=== PATIENT | male | born 1985 | race Caucasian/White ===

== ENCOUNTER 2018-05-27 15:56 | Outpatient (REF) | payer OTHER, SELFPAY ==
[2018-05-27 18:49] LABS: Abs Immature Grans 0.01 k/cumm (0.0-0.09); Absolute Basophil Count 0.03 k/cumm (0.0-0.2); Absolute Eosinophil Count 0.28 k/cumm (0.0-0.7); Absolute Neutrophil Count 2.02 k/cumm (1.2-6.7); Basophils % 0.6; HCT 47.4 % (40.0-50.0); HGB 16.1 g/dL (13.5-17.5); Immature Grans % 0.2; Lymphocytes % 40.9; Mean Corpuscular Hemoglobin 28.8 pg (27.0-33.0); Mean Corpuscular Volume 84.8 fL (80-95); Mean Platelet Volume 9.5 fL (8.0-11.0); Monocytes % 8.6; Neutrophils % 43.7; Platelet Count 254 x1000/uL (130-400); RBC 5.59 m/cumm (4.50-6.00); RBC Distribution Width 12.5 % (11.8-14.1); White Blood Cell Count 4.64 k/cumm (4.4-10.8)
[2018-05-27 18:59] LABS: Anion Gap 8.8 mmol/L (3-11); BUN 20 mg/dL (7-18); CO2 28.2 mmol/L (21.0-32.0); CREATININE 0.89 mg/dL (0.70-1.30); Calcium 9.4 mg/dL (8.5-10.1); Chloride 103 mmol/L (98-107); Glucose 84 mg/dL (70-100); Potassium 4.4 mmol/L (3.5-5.1); Sodium 140 mmol/L (136-145)
[2018-05-30 10:08] LABS: PSA, Diagnostic 0.4 ng/ml (0-2.5)
== END 2018-05-27 16:16 ==
LOC: NCHCN 15:56
PROVIDERS: PCP Physician Assistant Medical; Visit Provider Physician Assistant Medical
DX: R35.0 Frequency of micturition (principal)
CPT/HCPCS: 80048; 84153; 85025

== ENCOUNTER 2018-06-01 13:23 | Outpatient (CLI) | payer SELFPAY ==
--- NOTE | 2018-06-01 14:02 | DI.US_ITS ---
SYMPTOMS/DIAGNOSIS: URINARY FREQUENCY, R35.0 RENAL ULTRASOUND: The left kidney measures 10.9 x 6.1 x 5.7 cm, the right kidney 11 x 4.9 x 5.5 cm. There is no evidence of right or left nephrolithiasis or hydronephrosis. The prevoid bladder contains 343 cc, postvoid bladder contains 38 cc. Both ureteral jets were visualized. The prostatic volume was 12.5 cm2. SUMMARY: Normal renal ultrasound.
== END 2018-06-01 13:43 ==
PROVIDERS: PCP Physician Assistant Medical; Visit Provider Physician Assistant Medical
DX: R35.0 Frequency of micturition (principal)
CPT/HCPCS: 76770

== ENCOUNTER 2022-03-28 00:51 | Emergency (ER) | payer OTHER, SELFPAY ==
[2022-03-28] VITALS (41 sets, daily range): BP systolic 102–133; BP diastolic 60–76; PULSE 54–77; RESP 11–25; TEMP 36.5; O2SAT 96–100
--- NOTE | 2022-03-28 00:45 | RT.EKG_ITS ---
APPROVED REPORT Exam: Resting ECG Reason for Exam: chest pain Patient Location: E HR:63 bpm ECG Measurements Heart Rate 63 AXIS NJ 170 P 64 QRSd 108 QRS 47 QT 437 T 19 QTc 448 Conclusion Sinus rhythm...normal P axis, V-rate 60- 99. Sinus. Normal axis. No STEMI. I have reviewed and interpreted ECG and agree with software generated interpretation.
--- NOTE | 2022-03-28 01:04 | ED.GENADUL_ITS ---
Discharge Plan Disposition Patient Disposition: Home Condition: Good Discharge Details Clinical Impression: Episode of syncope, Chest pain Primary Care Provider: Jerzy Turner ED Provider: Marta Gaffney Home Meds and New Rx's Prescriptions: No Action No Known Home Meds Discharge Instructions Instructions: Chest Pain (ED), Syncope (ED) Additional Instructions: Your blood tests, EKGs and imaging today are reassuring and show no evidence of acute concerning or significant findings. Drink plenty of fluids and get plenty of rest. An order has been placed for an outpatient heart monitor. Call the hospital at [phone] to schedule an appointment for placement of a laboratory monitor. Follow-up with your primary care doctor in 1 week for reevaluation and for consideration for referral for an echocardiogram and/or cardiology for further evaluation. Return to the emergency department with any worsening or new concerning symptoms. Discharge Orders Other Ambulatory Orders: Holter Monitor (Routine) Timeframe: 1 Week Facility: [facility] - Location: Respiratory Therapy Ordered By: Marta Gaffney Discharge Data Discharge Physician: Marta Gaffney Medical Decision Making 0100 -- 36-year-old male with no significant past medical history presents with feeling cold-like symptoms for the past month that have since been improving with an episode of chest pain and dizziness prior to his syncopal episode this evening. EKG on arrival notes a rate of 63, normal axis, no STEMI and nondiagnostic. Vitals within normal limits. Patient states he feels pretty good at this time. He appears mildly anxious but nontoxic. He has no focal deficits. Suspect vasovagal syncope or micturition syncope in the setting of potential dehydration status post long URI-like symptoms for the past month. Consider arrhythmia secondary to component of chest pain. Review of records note that patient had a Holter monitor for palpitations and chest pain in 2013 which was unremarkable. Patient endorses that he has had an occasional feeling of chest aching for years. Will obtain screening labs including D-dimer, fluvid, chest x-ray and give fluids and reassess. 0500 -- Labs and imaging reviewed. Potassium 3.2, will replete. Troponin negative x 2. D-dimer negative. Lipase within normal limits. Fluvid negative. CXR negative for acute findings. Pt reassessed and feels much better and feels good to go home. He denies any return of his symptoms. An order for an outpatient laboratory monitor has been placed. He is advised to call his PCP on Wednesday morning for follow-up within the next week and for referral for outpatient echocardiogram and referral to cardiology if indicated. Usual and customary return precautions given prior to discharge. Medical Records Medical records reviewed: Yes I reviewed the patient's medical records. Imaging Data Radiologic Study: Radiologist's impression: Holter Monitor - 07/07/13 Rhythm throughout study is sinus. ? Mean sinus rate 75 beats per minute. ? No unusual pauses or bradycardias are observed. ? Two single PACs entire study. ? No ventricular ectopy. ? No atrial fibrillation.? No Supraventricular tachycardia.? No ventricular tachycardia. ? Patient notes ache many times during various sinus rates without significant ST-segment changes. ? ? Lab Data Lab results reviewed: Yes I reviewed the patient's lab results. Lab results narrative: Laboratory Tests Range/Units 03/28/22 03/28/22 03/28/22 01:04 01:04 01:10 WBC (4.4-10.8) 10^3/uL 6.53 RBC (4.36-5.78) 10^6/uL 4.97 Hgb (13.5-17.5) g/dL 14.1 Hct (40.0-50.0) % 43.0 MCV (80-95) fL 87 MCH (27.0-33.0) pg 28.4 MCHC (32.0-36.0) % 32.8 RDW (11.8-14.1) % 11.9 Plt Count (130-400) 10^3/uL 232 MPV (8.0-11.0) fL 9.2 Immature Gran % 0.2 Neutrophils % 35.2 Lymphocytes % 52.4 Monocytes % 8.1 Eosinophils % 3.5 Basophils % 0.6 Nucleated RBC % (0.0-0.3) % 0.0 Absolute Neutrophils (1.2-6.7) 10^3/uL 2.30 Absolute Lymphocytes (1.2-3.4) 10^3/uL 3.42 H Absolute Monocytes (0.1-0.8) 10^3/uL 0.53 Absolute Eosinophils (0.0-0.7) 10^3/uL 0.23 Absolute Basophils (0.0-0.2) 10^3/uL 0.04 D-Dimer (<500) ng/mlFEU Sodium (136-145) mmol/L 140 Potassium (3.5-5.1) mmol/L 3.2 L Chloride (98-107) mmol/L 104 Carbon Dioxide (21.0-32.0) mmol/L 27.7 Anion Gap (3-11) mmol/L 8.3 BUN (7-18) mg/dL 22 H Creatinine (0.70-1.30) mg/dL 0.9 Est GFR (CKD-EPI 2020) (mL/min/1.73m2) 114.22 Glucose (74-106) mg/dL 130 H Calcium (8.5-10.1) mg/dL 8.5 Magnesium (1.8-2.4) mg/dL 2.0 Total Bilirubin (0.2-1.0) mg/dL 0.7 AST (15-37) U/L 22 ALT (16-63) U/L 24 Alkaline Phosphatase (46-116) U/L 79 Troponin I (<or=60) ng/L < 50 Total Protein (6.4-8.2) g/dL 6.2 L Albumin (3.4-5.0) g/dL 3.6 Lipase (16-77) U/L 19 COVID-19 Source Nasopharynx SARS-CoV-2 (PCR) (Negative) Negative Influenza Type A (PCR) (Negative) Negative Influenza Type B (PCR) (Negative) Negative RSV (PCR) (Negative) Negative Range/Units 03/28/22 03/28/22 03:53 04:00 WBC (4.4-10.8) 10^3/uL RBC (4.36-5.78) 10^6/uL Hgb (13.5-17.5) g/dL Hct (40.0-50.0) % MCV (80-95) fL MCH (27.0-33.0) pg MCHC (32.0-36.0) % RDW (11.8-14.1) % Plt Count (130-400) 10^3/uL MPV (8.0-11.0) fL Immature Gran % Neutrophils % Lymphocytes % Monocytes % Eosinophils % Basophils % Nucleated RBC % (0.0-0.3) % Absolute Neutrophils (1.2-6.7) 10^3/uL Absolute Lymphocytes (1.2-3.4) 10^3/uL Absolute Monocytes (0.1-0.8) 10^3/uL Absolute Eosinophils (0.0-0.7) 10^3/uL Absolute Basophils (0.0-0.2) 10^3/uL D-Dimer (<500) ng/mlFEU 143 Sodium (136-145) mmol/L Potassium (3.5-5.1) mmol/L Chloride (98-107) mmol/L Carbon Dioxide (21.0-32.0) mmol/L Anion Gap (3-11) mmol/L BUN (7-18) mg/dL Creatinine (0.70-1.30) mg/dL Est GFR (CKD-EPI 2020) (mL/min/1.73m2) Glucose (74-106) mg/dL Calcium (8.5-10.1) mg/dL Magnesium (1.8-2.4) mg/dL Total Bilirubin (0.2-1.0) mg/dL AST (15-37) U/L ALT (16-63) U/L Alkaline Phosphatase (46-116) U/L Troponin I (<or=60) ng/L < 50 Total Protein (6.4-8.2) g/dL Albumin (3.4-5.0) g/dL Lipase (16-77) U/L COVID-19 Source SARS-CoV-2 (PCR) (Negative) Influenza Type A (PCR) (Negative) Influenza Type B (PCR) (Negative) RSV (PCR) (Negative) Labs: Laboratory Tests Range/Units 03/28/22 03/28/22 03/28/22 01:04 01:04 01:10 WBC (4.4-10.8) 10^3/uL 6.53 RBC (4.36-5.78) 10^6/uL 4.97 Hgb (13.5-17.5) g/dL 14.1 Hct (40.0-50.0) % 43.0 MCV (80-95) fL 87 MCH (27.0-33.0) pg 28.4 MCHC (32.0-36.0) % 32.8 RDW (11.8-14.1) % 11.9 Plt Count (130-400) 10^3/uL 232 MPV (8.0-11.0) fL 9.2 Immature Gran % 0.2 Neutrophils % 35.2 Lymphocytes % 52.4 Monocytes % 8.1 Eosinophils % 3.5 Basophils % 0.6 Nucleated RBC % (0.0-0.3) % 0.0 Absolute Neutrophils (1.2-6.7) 10^3/uL 2.30 Absolute Lymphocytes (1.2-3.4) 10^3/uL 3.42 H Absolute Monocytes (0.1-0.8) 10^3/uL 0.53 Absolute Eosinophils (0.0-0.7) 10^3/uL 0.23 Absolute Basophils (0.0-0.2) 10^3/uL 0.04 Sodium (136-145) mmol/L 140 Potassium (3.5-5.1) mmol/L 3.2 L Chloride (98-107) mmol/L 104 Carbon Dioxide (21.0-32.0) mmol/L 27.7 Anion Gap (3-11) mmol/L 8.3 BUN (7-18) mg/dL 22 H Creatinine (0.70-1.30) mg/dL 0.9 Est GFR (CKD-EPI 2020) (mL/min/1.73m2) 114.22 Glucose (74-106) mg/dL 130 H Calcium (8.5-10.1) mg/dL 8.5 Magnesium (1.8-2.4) mg/dL 2.0 Total Bilirubin (0.2-1.0) mg/dL 0.7 AST (15-37) U/L 22 ALT (16-63) U/L 24 Alkaline Phosphatase (46-116) U/L 79 Troponin I (<or=60) ng/L < 50 Total Protein (6.4-8.2) g/dL 6.2 L Albumin (3.4-5.0) g/dL 3.6 Lipase (16-77) U/L 19 COVID-19 Source Nasopharynx SARS-CoV-2 (PCR) (Negative) Negative Influenza Type A (PCR) (Negative) Negative Influenza Type B (PCR) (Negative) Negative RSV (PCR) (Negative) Negative ECG Data Attestation: I personally reviewed and interpreted this ECG (s) as follows: Interpretation: #1 -- rate of 63, sinus, no stemi. #2 -- rate of 61, sinus, no stemi. HPI General Mode of arrival: ambulatory . Date/Time Provider Initiated Documentation: 03/28/22 00:53 . Limitations to Documentation: no limitations . Information obtained by: patient . HPI Narrative: Patient is a 36-year-old male with no significant past medical history who presents with a complaint of chest pain, dizziness and syncopal episode prior to arrival. Patient states he was standing urinating this evening when he developed substernal chest aching followed by dizziness. Patient states he was planning been to come to the emergency department for evaluation and then when he was walking in the hallway at home he felt dizziness again and passed out. Patient denies any injury at that time. Patient states the chest aching and dizziness lasted for approximately 30 minutes and then resolved. Patient states he has had similar chest aching and has had dizziness in the past before and had a Holter monitor which was unremarkable. Patient states he has had cold-like symptoms for the past month that started with dry cough, postnasal drip and green nasal discharge. He states overall the symptoms have been improving and now resolved except for still having some nasal discharge. He states he has not tested himself for COVID. He states he has received 1 COVID-vaccine but not a second. Patient denies any recent fever, sore throat, shortness of breath, nausea, vomiting, diarrhea, urinary symptoms, headache or neck pain. He denies any recent medications including antibiotics, caffeine, energy drinks, alcohol or drug use. Related Data Home Medications Medication Instructions Recorded Confirmed Unknown [No Known Home Meds] 07/07/13 03/28/22 Allergies Allergy/AdvReac Type Severity Reaction Status Date / Time No Known Allergies Allergy Unverified 03/28/22 00:57 General Stated Complaint: Chest Pain ARABELLA: 2 Review of Systems All systems reviewed & are unremarkable except as noted in HPI and below Constitutional Constitutional: Reports as per HPI, Denies chills and Denies fever(s) Eyes Eyes: Denies blurry vision ENT Ears, Nose, Mouth, and Throat: Denies dizziness, Denies sore throat and Denies throat swelling Cardiovascular Cardiovascular: Reports chest pain and Denies dyspnea Respiratory Respiratory: Denies cough and Denies dyspnea Gastrointestinal Gastrointestinal: Denies abdominal pain, Denies diarrhea and Denies vomiting Genitourinary Genitourinary: Denies hematuria and Denies dysuria Musculoskeletal Musculoskeletal: Denies back pain and Denies numbness Integumentary/Breasts Skin/Breast: Denies lesions and Denies rash Neurologic Neurologic: Denies dizziness, Denies localized weakness and Denies numbness Allergic/Immunologic Allergic/Immunologic: Denies throat swelling PFSH All Active Problems (Updated 03/28/22 @ 04:46 by Marta Gaffney DO) Episode of syncope (Chronic) Chest pain (Acute) Medical History (Updated 03/28/22 @ 04:46 by Marta Gaffney DO) No significant past medical history Surgical History (Updated 03/28/22 @ 01:41 by Marta Gaffney DO) H/O thumb surgery Social History Smoking/Tobacco Use Status: Never Smoking risk assessment performed?: Yes Alcohol Intake: never Drug use: Never Substance use type: does not use Exam Const General: cooperative and no acute distress Orientation: alert, awake and oriented x3 HENMT Head: normal to inspection Face and sinus: normal facial exam Eyes General: appearance normal, both eyes and all related structures Pupils: PERRL EOM: EOM intact bilaterally Neck Neck: normal visual inspection and No submandibular swelling Lymphatic: no lymphadenopathy noted Chest Chest: normal inspection of the chest and no tenderness Resp Effort & Inspection: normal respiratory effort and able to speak in complete sentences Auscultation: clear to auscultation bilaterally Cardio Rate: regular rate Rhythm: regular rhythm GI Inspection: normal to inspection Palpation: soft, not firm, not rigid and nontender Auscultation: hypoactive bowel sounds Back/Spine/Pelvis Thoracic/Lumbar Spine: thoracic and lumbar spine normal to inspection Pelvis: no pain with anterior-posterior compression Skin General skin exam: no rashes or lesions noted Neuro General: patient alert, patient awake, patient oriented x3, moves all extremities and no meningeal signs Cranial Nerves: CN's II-XI intact bilaterally Cognition: normal cognition Speech: speech normal Motor: muscle tone normal throughout and strength 5/5 throughout Sensory Exam: no sensory deficits noted Extrem General: normal to inspection, full ROM, capillary refill normal, no calf tenderness bilaterally and no edema Psych Appearance: grossly normal Mental Status: mental status grossly normal Speech and Movement: speech and movement normal Affect: normal affect Course Vital Signs Vital signs: Vital Signs Temperature 97.7 F 03/28/22 00:52 Pulse 65 03/28/22 00:52 Respiratory Rate 15 03/28/22 00:52 Blood Pressure 119/67 03/28/22 00:52 Pulse Oximetry 97 03/28/22 00:52 Temperature 97.7 F 03/28/22 00:52 Temperature Source Temporal Artery Scan 03/28/22 00:52 Pulse 65 03/28/22 00:52 Respiratory Rate 15 03/28/22 00:52 Respiratory Effort Normal 03/28/22 00:52 Blood Pressure 119/67 03/28/22 00:52 Blood Pressure Position Supine 03/28/22 00:52 Pulse Oximetry 97 03/28/22 00:52 Oxygen Delivery Method Room Air 03/28/22 00:52 Oxygen Flow Rate 0 03/28/22 00:52 Pain Level 0 03/28/22 00:52
[2022-03-28] MEDS: Normal Saline 1,000 ML 1000 ML IV (01:10)
[2022-03-28 01:13] LABS: Abs Immature Grans 0.01 10^3/uL (0.0-0.06); Absolute Basophil Count 0.04 10^3/uL (0.0-0.2); Absolute Eosinophil Count 0.23 10^3/uL (0.0-0.7); Absolute Lymphocyte Count 3.42 10^3/uL (1.2-3.4); Absolute Monocyte Count 0.53 10^3/uL (0.1-0.8); Basophils % 0.6; Eosinophils % 3.5; HGB 14.1 g/dL (13.5-17.5); Immature Grans % 0.2; Lymphocytes % 52.4; MCH 28.4 pg (27.0-33.0); MCHC 32.8 % (32.0-36.0); MCV 87 fL (80-95); MPV 9.2 fL (8.0-11.0); Monocytes % 8.1; Neutrophils % 35.2; Platelet Count 232 10^3/uL (130-400); RBC 4.97 10^6/uL (4.36-5.78); RDW 11.9 % (11.8-14.1); RDW-SD 37.8 fL; WBC 6.53 10^3/uL (4.4-10.8)
--- NOTE | 2022-03-28 01:30 | DI.RAD_ITS ---
Exam(s) XR CHEST 2V PA LATERAL EXAM: XR CHEST 2V PA LATERAL CLINICAL HISTORY: chest pain, syncope, r/o acute disease TECHNIQUE: 2D digital imaging was performed. COMPARISON: No exams were available for comparison FINDINGS: HEART: Normal size. Aorta: Not dilated. PULMONARY VASCULATURE: Normal. LUNGS: Clear. PLEURAL SPACE: No pleural effusion or pneumothorax. BONE:Unremarkable for age. IMPRESSION: No acute abnormality. DATA REPOSITORY: RADIATION DOSE DELIVERED:
[2022-03-28 01:31] LABS: ALT 24 U/L (16-63); AST 22 U/L (15-37); Albumin 3.6 g/dL (3.4-5.0); Alkaline Phosphatase 79 U/L (46-116); Anion Gap 8.3 mmol/L (3-11); BUN 22 mg/dL (7-18); Bilirubin, Total 0.7 mg/dL (0.2-1.0); CO2 27.7 mmol/L (21.0-32.0); CREATININE 0.9 mg/dL (0.70-1.30); Calcium 8.5 mg/dL (8.5-10.1); Chloride 104 mmol/L (98-107); Estimated GFR 114.22 (mL/min/1.73m2); Glucose 130 mg/dL (74-106); Lipase 19 U/L (16-77); Potassium 3.2 mmol/L (3.5-5.1); Sodium 140 mmol/L (136-145); Total Protein 6.2 g/dL (6.4-8.2); Troponin I < 50 ng/L (<or=60)
[2022-03-28 01:49] LABS: COVID-19 PCR Negative (Negative); Influenza A PCR Negative (Negative); Influenza B PCR Negative (Negative); RSV PCR Negative (Negative)
[2022-03-28 01:50] LABS: Source Nasopharynx
[2022-03-28] MEDS: Potassium Chloride 20 MEQ TABCR 40 MEQ PO (02:25)
--- NOTE | 2022-03-28 02:59 | DI.VRAD_ITS ---
PROCEDURE INFORMATION: Exam: XR Chest Exam date and time: 03/28/2022 2:16 AM Age: 36 years old Clinical indication: Other: Chest pain, syncope, R/O acute disease TECHNIQUE: Imaging protocol: Radiologic exam of the chest. Views: 2 views. COMPARISON: No relevant prior studies available. FINDINGS: Lungs: Lungs are adequately inflated and symmetric. No focal consolidation or pulmonary edema. Pleural spaces: No pleural effusion. No pneumothorax. Heart/Mediastinum: Cardiomediastinal contours within normal limits. Bones/joints: Mild thoracic spondylosis. No acute osseous finding. IMPRESSION: No acute findings. Dictated and Authenticated by: Barney Santoro MD. Ordering:LACI Lozano MD
--- NOTE | 2022-03-28 04:00 | RT.EKG_ITS ---
APPROVED REPORT Exam: Resting ECG Reason for Exam: chest pain Patient Location: E HR:61 bpm ECG Measurements Heart Rate 61 AXIS SD 146 P 79 QRSd 88 QRS 54 QT 434 T 23 QTc 437 Conclusion Sinus rhythm...normal P axis, V-rate 60- 99. Sinus. Normal axis. No STEMI. I have reviewed and interpreted ECG and agree with software generated interpretation.
[2022-03-28 04:17] LABS: Troponin I < 50 ng/L (<or=60)
[2022-03-28 04:40] LABS: D-Dimer 143 ng/mlFEU (<500)
== END 2022-03-28 04:59 | disposition home or self-care (01) ==
PROVIDERS: Emergency Provider Physician Assistant; PCP Physician Assistant Medical
DX: R07.9 Chest pain, unspecified (principal); R55 Syncope and collapse; Z20.822 Contact with and (suspected) exposure to COVID-19
CPT/HCPCS: 36415; 80053; 83690; 87637; 93005; 96360; 99284; 71046; 83735; 84484; 85025; 85379; 93010

== ENCOUNTER 2022-04-16 08:01 | Outpatient (RCR) | payer OTHER, SELFPAY ==
--- NOTE | 2022-04-16 09:30 | HOLTER_ITS ---
APPROVED REPORT Conclusion This is a Holter monitor ordered for syncope Rhythm throughout is sinus with an average heart rate of 59. Minimum was 46, maximum 102 There were no atrial or ventricular dysrhythmias, no high-grade AV block, no pauses greater than 3 se conds
== END 2022-05-08 23:59 | disposition home or self-care (01) ==
LOC: CARDOPNVT 08:01
PROVIDERS: PCP Physician Assistant Medical; Visit Provider Physician Assistant
DX: R55 Syncope and collapse (principal)
CPT/HCPCS: 93225; 93226

== ENCOUNTER 2024-12-02 11:44 | Emergency (ER) | payer BC, SELFPAY ==
--- NOTE | 2024-12-02 11:45 | DI.RAD_ITS ---
Exam(s) XR HAND LT COMPLETE EXAM: XR HAND LT COMPLETE CLINICAL HISTORY: Laceration left 1st MCP. TECHNIQUE: 2D digital imaging was performed of the left hand. Three views were obtained. AP, lateral and oblique views were obtained. COMPARISON: No exams were available for comparison FINDINGS: BONES: No acute fracture is present. No bony destructive lesion is seen. JOINTS: No dislocation present. SOFT TISSUE: Normal. IMPRESSION: There is no acute fracture or dislocation. DATA REPOSITORY: RADIATION DOSE DELIVERED:
[2024-12-02 11:46] VITALS: BP 89/60; PULSE 51; RESP 18; O2SAT 98
[2024-12-02] MEDS: Diph,Pertuss(Acell),Tet Vac/Pf 0.5 ML SYR IM (12:03)
[2024-12-02] MEDS: Lidocaine/Epinephri/Tetracaine Topical Gel 3 ML TP (12:03)
--- NOTE | 2024-12-02 12:09 | ED.GENADUL_ITS ---
Discharge Plan Disposition Patient Disposition: Home Condition: Stable Discharge Details Clinical Impression: Laceration of left hand Primary Care Provider: Jerzy Turner ED Provider: Eufemia Guerin Home Meds and New Rx's Prescriptions: New cephalexin 500 mg capsule 500 mg PO BID 7 Days Qty: 14 0RF Rx Instructions: Take one tab twice daily x 7 days Discharge Instructions Instructions: Laceration Repair With Stitches ED Additional Instructions: Please take the antibiotics twice daily as prescribed with yogurt or a probiotic. Please leave the laceration alone for the next 12 to 24 hours. After that you may wash under running soap and water daily. Allow to air dry at least 4 hours a day. Keep covered while at work or if there is a risk that it may get dirty. Have the sutures removed in approximately 7 to 10 days. Return sooner for any signs of infection such as red streaks, drainage swelling or concerns. Stand Alone Forms: Work Release Referrals: Jerzy Turner PA [Primary Care Provider, Medicine] - 1 week Referral Note: ER follow up HPI General Mode of arrival: ambulatory . Date/Time Provider Initiated Documentation: 12/02/24 11:45 . Limitations to Documentation: no limitations . Information obtained by: patient, RN notes reviewed and old records reviewed . HPI Narrative: 39-year-old male presents to the ER with a chief complaint of left hand laceration which occurred approximately 30 minutes to an hour prior to arrival. Patient reports that he was using some metal cutting machinery when a piece of metal kicked back and lacerated his hand. He has approximately 2 cm laceration to the dorsum of his left first MCP joint, he does have intact flexion and extension, there is a tendon visible. He reports feeling nauseous and dizzy initially he presents with slightly soft blood pressure and 89 systolic. He reports he did eat this morning. Unknown last tetanus vaccination, bleeding controlled upon arrival. Related Data Home Medications ?Medication ?Instructions ?Recorded ?Confirmed cephalexin 500 mg capsule 500 mg PO BID Laceration 7 d ays 12/02/24 #14 caps Previous Rx's ?Medication ?Instructions ?Recorded cephalexin 500 mg capsule 500 mg PO BID Laceration 7 d ays 12/02/24 #14 caps Allergies Allergy/AdvReac Type Severity Reaction Status Date / Time No Known Allergies Allergy Verified 12/02/24 11:52 General Stated Complaint: Laceration ARABELLA: 3 Review of Systems All systems reviewed & are unremarkable except as noted in HPI and below Exam Extrem Left upper extremity: wrist Details: normal to inspection and hand Details: laceration 2nd digit dorsal aspect mid Details: irregular Hand/finger images: 2 1. Laceration noted, bleeding controlled approximately 2 cm Course Vital Signs Vital signs: Vital Signs Pulse 51 L 12/02/24 11:46 Respiratory Rate 18 12/02/24 11:46 Blood Pressure 89/60 L 12/02/24 11:46 Pulse Oximetry 98 12/02/24 11:46 Pulse 51 L 12/02/24 11:46 Respiratory Rate 18 12/02/24 11:46 Blood Pressure 89/60 L 12/02/24 11:46 Blood Pressure Position Sitting 12/02/24 11:46 Pulse Oximetry 98 12/02/24 11:46 Oxygen Delivery Method Room Air 12/02/24 11:46 Oxygen Flow Rate 0 12/02/24 11:46 Pain Level 1 12/02/24 11:46 Procedure Laceration Laceration 1: Date of Procedure: 12/02/24 Time of procedure: 13:33 Provider that performed the procedure: Eufemia Gil Time Out Performed: No Patient Consented: Verbally Site: hand (Left) Side (If applicable): left Description: irregular Depth: simple, single layer Local anesthetic: Lidocaine 1% and LET(lidocaine epinephrine tetracaine) Amount of anesthesia used (mL): 1 Pre-repair:: wound explored, irrigated extensively and deep structures intact Skin layer closed with: nylon Suture size: 4-0 Number of sutures:: 4 Technique: simple, interrupted Procedure Description/Note: Laceration cleaned with chlorhexidine, anesthetized with 1% lidocaine, anesthesia achieved, let was applied prior to this, 4 simple interrupted sutures placed, 4.0 Ethilon wound well-approximated. Patient tolerated well. Medical Decision Making 39-year-old male presents to the ER with a chief complaint of left hand laceration which occurred approximately 30 minutes to an hour prior to arrival. Patient reports that he was using some metal cutting machinery when a piece of metal kicked back and lacerated his hand. He has approximately 2 cm laceration to the dorsum of his left first MCP joint, he does have intact flexion and extension, there is a tendon visible. He reports feeling nauseous and dizzy initially he presents with slightly soft blood pressure and 89 systolic. He reports he did eat this morning. Unknown last tetanus vaccination, bleeding controlled upon arrival. Imaging ordered to rule out foreign body, topical let, Tdap booster will perform wound care and suture laceration. Will also give antibiotics since this is a laceration over the joint space. X-ray shows no bony abnormality, no foreign body. Laceration repaired, see procedure note. Patient was placed on cephalexin due to a laceration over the joint space. To treat empirically for infection. This text was generated using [employer] system, please disregard any oddities of phrase or misspellings. PFSH All Active Problems (Updated 12/02/24 @ 13:36 by Eufemia Guerin NP) Laceration of left hand (Acute) Medical History No significant past medical history Surgical History H/O thumb surgery Social History Smoking/Tobacco Use Status: Never Smoking risk assessment performed?: Yes Alcohol Intake: never Drug use: Never Substance use type: does not use Housing: house Do you feel safe at home: Yes Do you feel safe in your relationship?: Yes
[2024-12-02] MEDS: Cephalexin 500 MG CAP PO (12:33)
[2024-12-02] MEDS: Cephalexin 500 MG CAP, 2 CAPS/BTL PO (12:34)
[2024-12-02] MEDS: Lidocaine 1% Pres-Free 5 ML VIAL IJ (12:36)
[2024-12-02 13:21] VITALS: BP 96/54; PULSE 59; RESP 16; O2SAT 97
== END 2024-12-02 14:00 | disposition home or self-care (01) ==
PROVIDERS: Emergency Provider Registered Nurse Emergency; PCP Physician Assistant Medical
DX: S61.412A Laceration without foreign body of left hand, initial encounter (principal); W26.8XXA Contact with other sharp object(s), not elsewhere classified, initial encounter; Z23 Encounter for immunization
CPT/HCPCS: 99283; 99284; 12001; 90471; 90715; 73130; J2003